=== PATIENT | male | born 1975 | race Caucasian/White ===

== ENCOUNTER 2024-01-06 09:14 | Day surgery (SDC) | payer BC ==
[2024-01-06 09:42] VITALS: TEMP 98
[2024-01-06] MEDS: LACTATED RINGERS 1,000 ML IV ONE (09:51)
[2024-01-06] MEDS: LIDOCAINE 1% (10MG/ML) FOR IV START INTRADERMA ONE (09:51)
[2024-01-06] MEDS ORDERED: PROPOFOL 10 MG/ML 20 ML VIAL IV ONE (10:14)
--- NOTE | 2024-01-06 10:36 | P.PCN ---
Date of Procedure: 01/06/24 Procedure(s) Performed: BRIEF HISTORY: Patient is a 48-year-old pleasant white male scheduled for an elective colonoscopy as a part of screening for colon cancer. His mom was diagnosed with colon cancer at age 65. PROCEDURE PERFORMED: Colonoscopy with snare polypectomy and cold biopsy PREOPERATIVE DIAGNOSIS: Screening for colon cance/family history of colon cancer r. IV sedation per Anesthesia. PROCEDURE: After informed consent was obtained, the patient, was brought into the endoscopy unit. IV sedation was administered by Anesthesia under continuous monitoring. Digital rectal examination was normal. Initially the Olympus CF-160 flexible video colonoscope was then inserted in the rectum, gradually advanced into the cecum without any difficulty. Careful examination was performed as the scope was gradually being withdrawn. Ileocecal valve and the appendiceal orifice were visualized and appeared normal. Prep was excellent. Mucosa of the cecum, ascending colon, appeared normal. In the transverse colon there was a 3 mm polyp that was removed by cold biopsy. In the descending colon there was a 5 mm polyp that was removed by cold snare polypectomy. In the sigmoid colon there were 2 polyps measuring 5 mm in size both of which were removed by cold snare polypectomy. In the mid rectum there was a 2 cm polyp that was removed by snare polypectomy. Retroflexion was performed in the rectum and no lesions were seen. The patient tolerated the procedure well. IMPRESSION: 3 mm transverse colon polyp status post cold biopsy 5 mm descending colon polyp status post snare polypectomy 5 mm x 2 sigmoid colon polyp s/p polypectomy 2 cm broad-based rectal polyp status post snare polypectomy RECOMMENDATIONS: Findings of this examination were discussed with the patient as well as his family. He was advised to follow-up with the biopsy results. If the biopsy reveals adenoma he can have repeat colonoscopy 3 years..
[2024-01-06 11:09] VITALS: BP 136/84; PULSE 65; RESP 16
== END 2024-01-06 11:11 | disposition home or self-care (01) ==
LOC: ORWHC2ENDO 09:14
PROVIDERS: ATTEND Internal Medicine Gastroenterology
DX: Z12.11 Encounter for screening for malignant neoplasm of colon (principal); D12.3 Benign neoplasm of transverse colon; D12.4 Benign neoplasm of descending colon; D12.5 Benign neoplasm of sigmoid colon; D12.8 Benign neoplasm of rectum; K21.9 Gastro-esophageal reflux disease without esophagitis; Z80.0 Family history of malignant neoplasm of digestive organs; Z91.013 Allergy to seafood; Z87.891 Personal history of nicotine dependence
CPT/HCPCS: 88305; 45380; 45385; J2704